=== PATIENT | female | born 1970 | race Caucasian/White ===

== ENCOUNTER 2016-11-11 19:45 | Emergency (ER) | payer OTHER ==
[~2016-11-11] VITALS: Ht 177.8 cm; Wt 77.1 kg
[2016-11-11 20:20] LABS: BASO # 0.1 x10^3/uL (0.0-0.2); BASO % 1 % (0-3); EOS % 5 % (0-3); HEMATOCRIT 39.9 % (36.0-47.0); LYMPH # 2.4 x10^3/uL (1.0-4.8); LYMPH % 29 % (24-48); MEAN CORPUSCULAR HEMOGLOBIN 28 pg (25-35); MEAN CORPUSCULAR HGB CONC 33 g/dL (31-37); MEAN CORPUSCULAR VOLUME 85 fL (79-100); MONO % 6 % (0-9); NEUT % 59 % (31-73); PLATELET COUNT 237 x10^3/uL (140-400); RED BLOOD COUNT 4.69 x10^6/uL (3.50-5.40); RED CELL DISTRIBUTION WIDTH 13.2 % (11.5-14.5); WHITE BLOOD COUNT 8.2 x10^3/uL (4.0-11.0)
[2016-11-11 20:39] LABS: CALCIUM 8.8 mg/dL (8.5-10.1); CREATININE 1.1 mg/dL (0.6-1.0); POTASSIUM 3.9 mmol/L (3.5-5.1)
[2016-11-11 20:44] LABS: ALBUMIN 3.7 g/dL (3.4-5.0); ALBUMIN/GLOBULIN RATIO 1.2 (1.0-1.7); TOTAL BILIRUBIN 0.2 mg/dL (0.2-1.0); TOTAL PROTEIN 6.7 g/dL (6.4-8.2)
[2016-11-11 21:32] VITALS: BP 131/76
--- NOTE | 2016-11-11 21:41 | PHYS DOC ---
Past Medical History Past Medical History: No Pertinent History Past Surgical History: Tonsillectomy Alcohol Use: Occasionally Additional Information: DAILY 2 DRINKS Drug Use: None Adult General Chief Complaint Chief Complaint: CHEST PAIN [facility] HPI 46-year-old female presents with a 2-3 day history of mid back pain that radiates into her chest. She states at times it feels like there is a squeezing sensation. She denies any shortness of breath nausea vomiting or diaphoresis. She states it typically goes away with a back massage or exertion. She's not had any fever chills or sweats. [] She states currently she is having mild discomfort in her back. Patient states that she was at her [employer] for her yearly exam recently and was told that her blood pressure was slightly elevated and that she needed to follow-up on this. She's denied any headache visual or speech changes. She denies any lateralizing neurologic deficits. Review of Systems Review of Systems Constitutional: Denies fever or chills [] Eyes: Denies change in visual acuity, redness, or eye pain [] HENT: Denies nasal congestion or sore throat [] Respiratory: Denies cough or shortness of breath [] Cardiovascular: No additional information not addressed in HPI [] GI: Denies abdominal pain, nausea, vomiting, bloody stools or diarrhea [] : Denies dysuria or hematuria [] Musculoskeletal: Denies back pain or joint pain [] Integument: Denies rash or skin lesions [] Neurologic: Denies headache, focal weakness or sensory changes [] Endocrine: Denies polyuria or polydipsia [] Allergies Allergies Allergies Coded Allergies Type Severity Reaction Last Updated Verified Sulfa (Sulfonamide Antibiotics) Allergy Unknown 11/11/16 Yes Physical Exam Physical Exam Constitutional: Well developed, well nourished, no acute distress, non-toxic appearance. [] HENT: Normocephalic, atraumatic, bilateral external ears normal, oropharynx moist, no oral exudates, nose normal. [] Eyes: PERRLA, EOMI, conjunctiva normal, no discharge. [] Neck: Normal range of motion, no tenderness, supple, no stridor. [] Cardiovascular:Heart rate regular rhythm, no murmur [] Lungs & Thorax: Bilateral breath sounds clear to auscultation [] Abdomen: Bowel sounds normal, soft, no tenderness, no masses, no pulsatile masses. [] Skin: Warm, dry, no erythema, no rash. [] Back: No tenderness, no CVA tenderness. [] Extremities: No tenderness, no cyanosis, no clubbing, ROM intact, no edema. [] Neurologic: Alert and oriented X 3, normal motor function, normal sensory function, no focal deficits noted. [] Psychologic: Affect normal, judgement normal, mood normal. [] Current Patient Data Vital Signs Vital Signs Date Time Temp Pulse Resp B/P Pulse Ox O2 Delivery O2 Flow Rate FiO2 11/11/16 21:32 64 18 131/76 98 11/11/16 20:56 Room Air 11/11/16 20:09 98.5 98.5 Lab Values Laboratory Tests Test 11/11/16 20:08 11/11/16 20:26 White Blood Count 8.2x10^3/uL (4.0-11.0) Red Blood Count 4.69x10^6/uL (3.50-5.40) Hemoglobin 13.0g/dL (12.0-15.5) Hematocrit 39.9% (36.0-47.0) Mean Corpuscular Volume 85fL (79-100) Mean Corpuscular Hemoglobin 28pg (25-35) Mean Corpuscular Hemoglobin Concent 33g/dL (31-37) Red Cell Distribution Width 13.2% (11.5-14.5) Platelet Count 237x10^3/uL (140-400) Neutrophils (%) (Auto) 59% (31-73) Lymphocytes (%) (Auto) 29% (24-48) Monocytes (%) (Auto) 6% (0-9) Eosinophils (%) (Auto) 5% (0-3) H Basophils (%) (Auto) 1% (0-3) Neutrophils # (Auto) 4.8x10^3uL (1.8-7.7) Lymphocytes # (Auto) 2.4x10^3/uL (1.0-4.8) Monocytes # (Auto) 0.5x10^3/uL (0.0-1.1) Eosinophils # (Auto) 0.4x10^3/uL (0.0-0.7) Basophils # (Auto) 0.1x10^3/uL (0.0-0.2) D-Dimer (Dayna) < 0.27ug/mlFEU (0.00-0.50) Sodium Level 142mmol/L (136-145) Potassium Level 3.9mmol/L (3.5-5.1) Chloride Level 105mmol/L (98-107) Carbon Dioxide Level 29mmol/L (21-32) Anion Gap 8 (6-14) Blood Urea Nitrogen 17mg/dL (7-20) Creatinine 1.1mg/dL (0.6-1.0) H Estimated GFR (Cockcroft-Gault) 53.0 BUN/Creatinine Ratio 15 (6-20) Glucose Level 97mg/dL (70-99) Calcium Level 8.8mg/dL (8.5-10.1) Total Bilirubin 0.2mg/dL (0.2-1.0) Aspartate Amino Transferase (AST) 14U/L (15-37) L Alanine Aminotransferase (ALT) 14U/L (14-59) Alkaline Phosphatase 61U/L (46-116) Troponin I Quantitative < 0.017ng/mL (0.000-0.055) Total Protein 6.7g/dL (6.4-8.2) Albumin 3.7g/dL (3.4-5.0) Albumin/Globulin Ratio 1.2 (1.0-1.7) POC Urine HCG, Qualitative Hcg negative (Negative) Laboratory Tests 11/11/16 20:08 Laboratory Tests 11/11/16 20:08 EKG EKG [EKG: Normal sinus rhythm rate of [address]-T changes] Radiology/Procedures Radiology/Procedures [] Impressions: Chest x-ray: Negative exam as interpreted by me Course & Med Decision Making Course & Med Decision Making Pertinent Labs and Imaging studies reviewed. (See chart for details) [ED course: Evaluation reveals a 46-year-old anxious female who is in no distress. Certainly, her complaints are concerning but her preliminary workup is unremarkable. I did offer her admission to the hospital for further evaluation to include a cardiac stress test but the patient refused. Patient voiced understanding of potential complications from discharge home including myocardial infarction and even . Having said that, I do feel the patient is stable for discharge and follow-up as an outpatient.] Dragon Disclaimer Dragon Disclaimer This electronic medical record was generated, in whole or in part, using a voice recognition dictation system. Departure Departure Impression: Primary Impression: Chest pain Disposition: HOME, SELF-CARE Condition: STABLE Referrals: NO PCP (PCP) Patient Instructions: Chest Pain (Nonspecific) Additional Instructions: Follow with your family doctor this week as scheduled. Return to the emergency department immediately with any new or concerning symptoms Problem Qualifiers Primary Impression: Chest pain Chest pain type: unspecified Qualified Code: R07.9 - Chest pain, unspecified HEATHER HAIDRE DO Nov 11, 2016 21:41
--- NOTE | 2016-11-12 06:49 | EKG ---
[facility] [address] [place] [id number] Test Date: 2016-11-11 Test Time: 20:00:59 Pat Name: LIDIA MAJOR Department: Room: Gender: F Crisis Counselor: : 1970 Requested By: HEATHER HAIDER Order Number: [id number] Reading MD: Measurements Intervals [place] Rate: 58 P: 61 HI: 176 QRS: 96 QRSD: 92 T: 52 QT: 440 QTc: 436 Interpretive Statements SINUS RHYTHM RIGHTWARD AXIS OTHERWISE NORMAL ECG RI6.01 Unconfirmed report No previous ECG available for comparison
--- NOTE | 2016-11-12 07:48 | RAD ---
Portable chest, 11/11/2016: History: Substernal chest pain The heart size and pulmonary vascularity are normal. No pulmonary infiltrates are seen. There is no evidence of pleural fluid. IMPRESSION: No acute cardiopulmonary abnormality is detected.
== END 2016-11-11 21:49 | disposition home or self-care (01) ==
LOC: ER 19:45
DX: R07.9 Chest pain, unspecified (principal); Z88.2 Allergy status to sulfonamides
CPT/HCPCS: 36415; 71010; 80053; 81025; 84484; 85027; 85379; 93005; 99285-25